=== PATIENT | female | born 1995 | race Native Hawaiian/Other Pacific Islander ===

== ENCOUNTER 2022-09-30 18:40 | Emergency (ER) | payer OTHER ==
[~2022-09-30] VITALS: Ht 177.8 cm; Wt 68.0 kg
[2022-09-30 18:51] VITALS: TEMP 97.1
[2022-09-30 19:47] LABS: PLATELET COUNT 221 K/uL (152-353)
[2022-09-30 19:58] LABS: POTASSIUM 3.9 mmol/L (3.6-5.2)
[2022-09-30 21:55] VITALS: BP 110/67
== END 2022-09-30 21:55 | disposition home or self-care (01) ==
LOC: ED 18:40
PROVIDERS: Emergency Medicine
DX: O20.0 Threatened abortion (principal); Z3A.01 Less than 8 weeks gestation of pregnancy
CPT/HCPCS: 36415; 80053; 80307; 81000; 84702; 85027; 87210; 87490; 87590; 99284